=== PATIENT | male | born 1940 | race Caucasian/White ===

== ENCOUNTER 2021-07-29 15:41 | Emergency (ER) | payer OTHER, MEDICARE ==
[2021-07-29] MEDS ORDERED: Lidocaine 1% (PF) 30 ML VIAL ONE (16:16)
[2021-07-29] MEDS ORDERED: Bacitracin 1 PK ONE (17:14)
[2021-07-29] MEDS ORDERED: Amoxicillin/Potassium Clav 875 MG TAB ONE (17:16)
== END 2021-07-29 17:26 | disposition home or self-care (01) ==
LOC: MADERS 15:41
DX: S61.250A Open bite of right index finger without damage to nail, initial encounter (principal); S61.210A Laceration without foreign body of right index finger without damage to nail, initial encounter; Z86.711 Personal history of pulmonary embolism; I25.10 Atherosclerotic heart disease of native coronary artery without angina pectoris; I48.91 Unspecified atrial fibrillation; N40.0 Benign prostatic hyperplasia without lower urinary tract symptoms; E78.5 Hyperlipidemia, unspecified; E78.00 Pure hypercholesterolemia, unspecified; I10 Essential (primary) hypertension; Z79.01 Long term (current) use of anticoagulants; W54.0XXA Bitten by dog, initial encounter
CPT/HCPCS: 12002; J2001